=== PATIENT | male | born 1930 | race Asian ===

== ENCOUNTER 2016-12-18 13:02 | Inpatient (IN) | payer MEDICARE, MEDICAID ==
--- NOTE | 2016-12-18 13:46 | ED Physician Chart ---
Chief Complaint/HPI - Patient Information Date Seen:: 12/18/16 Time Seen:: 13:05 Chief Complaint:: Intermittent diarrhea for 3-4 days. History of Present Illness:: Brought in by ambulance for the above reason. Pt is Tagalog speaking. Interpretation is provided by my nurse Jeanie. Pt states that he has had nonbloody loose stool intermittently for the past 3 days. No fever. No known recent antibiotic use, recent travel, or ingestion of contaminated food or liquid. Pt denies abdominal pain or discomfort. No lightheadedness. Allergies:: Allergies Allergy/AdvReac Type Severity Reaction Status Date / Time No Known Allergies Allergy Verified 12/18/16 13:25 Vitals:: Vital Signs - 8 hr 12/18/16 13:25 Temp 97.5 F HR 91 RR 16 BP 147/60 O2 Sat % 97 Historian:: Patient, Medical Records (from transferring facility) Family MD/PCP:: Dr. Espinal. LMP:: N/A Review:: Nurse's Note Reviewed, Transfer documents Reviewed Review of Systems - Review of Systems General/Constitutional: No fever, No chills, No weight loss, No weakness, No diaphoresis, No edema, No loss of appetite, Other Skin: No skin lesions, No rash, No bruising Head: No headache, No light-headedness ENT: No earache, No nasal drainage, No sore throat, No tinnitus Neck: No neck pain, No swelling, No thyromegaly, No stiffness, No mass noted Cardio Vascular: No chest pain, No palpitations, No PND, No orthopnea, No edema Pulmonary: No SOB, No cough, No sputum, No wheezing GI: No vomiting, Diarrhea, No pain, No melena, No hematochezia, No hematemesis G/U: No dysuria, No frequency, No hematuria Musculoskeletal: No bone or joint pain, No back pain, No muscle pain Psychiatric: No prior psych history Hematopoietic: No bruising, No lymphadenopathy Allergic/Immuno: No urticaria, No angioedema Neurological: No syncope, No focal symptoms, No weakness, No paresthesia, No headache, No seizure, No dizziness, No confusion, No vertigo Past Medical History - Past Medical History Past Medical History: HTN, DM, PUD/GERD, Other (Chronic renal insufficiency) Family History: None Social History: Non Smoker, No Alcohol, No Drug Use, , Care Facility, Other (retired.) Surgical History: None Psychiatricy History: None Medication: Reviewed Family Medical History - Family Member Mother History Unknown: Yes Physical Exam - Physical Examination General/Constitutional: Awake, Well-developed, well-nourished, Alert, No distress, Non-toxic appearing Other Gen/Cons comments:: Breathes comfortably, speaks clearly, and interacts appropriately except pt is hard of hearing and is not fully cooperative. Head: Atraumatic Eyes: Lids, conjuctiva normal, PERRL, EOMI Skin: No rash, No ecchymosis, No lymphadenopathy ENMT: External ears, nose nl, Nasal exam nl, Oropharynx nl, Tonsils nl Other ENMT comments:: Mucous membrane is slightly dry. Neck: Nontender, Full ROM w/o pain, No JVD, No nuchal rigidity, No bruit, No mass, No stridor Respiratory: Nl effort/Exclusion, Clear to Auscultation, No Wheeze/Rhonchi/Rales Cardio Vascular: RRR, No murmur, gallop, rubs, NL S1 S2 GI: No tenderness/rebounding/guarding, No organomegaly, No hernia, Normal BS's, Nondistended, No mass/bruits, No McBurney tenderness Other GI comments:: Abdomen is soft. Extremities: No tenderness or effusion, Full ROM, normal strength in all extremities, No edema Neuro/Psych: Alert/oriented (oriented x 3), Mood normal, No focal deficits ( except pt is hard of hearing.) Labs/Radiology/EKG Results - Lab Results Results: Laboratory Tests 12/18/16 12/18/16 14:07 14:07 WBC 11.5 H RBC 3.95 Hgb 12.6 Hct 36.2 L MCV 91.7 MCH 32.0 H MCHC Differential 34.9 RDW 13.0 Plt Count 200 MPV 7.1 Neutrophils % 84.8 H Lymphocytes % 7.2 L Monocytes % 6.7 Eosinophils % 0.5 Basophils % 0.8 Sodium 133 L Potassium 4.0 Chloride 105 Carbon Dioxide 22.0 Anion Gap 10.0 BUN 32 H Creatinine 1.9 H Est GFR ( Amer) TNP Est GFR (Non-Af Amer) TNP BUN/Creatinine Ratio 16.8 Glucose 135 H Calcium 9.6 Total Bilirubin 0.8 AST 17 ALT 16 Alkaline Phosphatase 46 Total Protein 7.6 Albumin 4.1 L Globulin 3.5 Albumin/Globulin Ratio 1.2 Fecal Hemoccult test, fecal WBC and cultures are pending. ED Septic Shock - . Is Septic Shock (SBP<90, OR Lactate>4 mmol\L) present?: No - <6hrs of presentation: Vital Signs: Vital Signs - 8 hr 12/18/16 13:25 Temp 97.5 F HR 91 RR 16 BP 147/60 O2 Sat % 97 Reassessment (Disposition) - Reassessment Reassessment:: 1505 Pt remains stable without recurrent diarrhea since he arrived at the ER. Lab results just became available. Case was discussed with Dr. Espinal with pertinent H & P and available lab findings reviewed. Pt is to be admitted to [facility] under his care. Lab findings and management plan have been explained to pt through interpretation by my nurse Jeanie. Reassessment Condition:: Improved - Diagnosis Diagnosis:: Diarrhea by hx, stable. No recurrent diarrhea after pt arrived at this ER. Dehydration with mild hyponatremia. Stable. Diabetes mellitus, stable. h/o Chronic renal insufficiency, stable. - Patient Disposition Admitted to:: Med/Surg Admitting Medical Physician:: Philip Espinal Time:: 15:10 Condition at Disposition:: Stable, Improved
[2016-12-18 14:18] LABS: % MONOCYTES 6.7 % (2.0-10.0); MEAN PLATELET VOLUME 7.1 fl
[2016-12-18 14:21] LABS: % BASOPHILS 0.8 % (0.0-2.0); % EOSINOPHILS 0.5 % (0.0-5.0); % LYMPHOCYTES 7.2 % (20.0-50.0); % NEUTROPHILS 84.8 % (40.0-80.0); HEMATOCRIT 36.2 % (39.0-49.0); HEMOGLOBIN 12.6 gm/dL (12.6-17.4); MEAN CELL VOLUME 91.7 fl (80-99); MEAN CORPUSCULAR HGB CONC 34.9 pg (28.0-36.0); NEUTROPHILE ABSOLUTE 9.7 Th/cmm (1.8-8.0); PLATELET COUNT 200 Th/cmm (150-400); RED BLOOD COUNT 3.95 Mil/cmm (3.80-5.80); WHITE BLOOD COUNT 11.5 Th/cmm (4.8-10.8)
[2016-12-18 14:35] LABS: ALB/GLOB RATIO 1.2 (1.0-1.8); ALKALINE PHOSPHATASE 46 U/L (34-104); BILIRUBIN,TOTAL 0.8 mg/dL (0.3-1.0); BUN - UREA NITROGEN 32 mg/dL (7-25); BUN/CREATININE RATIO 16.8; CALCIUM SERUM 9.6 mg/dL (8.6-10.3); CHLORIDE 105 mEq/L (98-107); CREATININE - SERUM 1.9 mg/dL (0.7-1.3); GLUCOSE 135 mg/dL (70-105); SGOT 17 U/L (13-39); SGPT/ALT 16 U/L (7-52); SODIUM SERUM 133 mEq/L (136-145)
[2016-12-18] MEDS ORDERED: Sodium Chloride 0.9% 1,000 ML IV ONE (15:01)
[2016-12-18] MEDS ORDERED: Diphenoxylate/Atropine 2.5mg Tab PO PRN (16:16)
[2016-12-18] MEDS: Sodium Chloride 0.9% 1,000 ML IV SCH (16:44)
--- NOTE | 2016-12-18 19:57 | Admit Criteria Form ---
Admit Criteria Forms - Admit Criteria Diagnosis: DEHYDRATION Clinical Indications for Admission to Inpatient Care (Place 'X' for any and all applicable criteria): Admission is indicated for ANY ONE of the following (1)(2)(3)(4)(5): [X]I. Inpatient admission required rather than observation care (see Dehydration: Observation Care guideline as appropriate) because of ANY ONE of the following: [ ]a) Vomiting that is severe or persistent [ ]b) Severe electrolyte abnormalities requiring inpatient care [ ]c) Hemodynamic instability [ ]d) IV fluid to replace significant ongoing losses (greater than 3 L/m2 per day (10) (11) [ ]e) Parenteral nutrition regimen that must be implemented on inpatient basis [X]f) Other condition,treatment or monitoring requiring inpatient admission [ ]II. Serious cause for dehydration requiring acute hospitalization (eg, bowel obstruction, increased intracranial pressure, infectious cause) Extended stay beyond goal length of stay may be needed for(1)(3 )(4)(17): [ ]a) Chronic severe dehydration [ ]b) Persistent vital sign changes, severe electrolyte imbalance, or diagnosed cause of dehydration that requires continued hospitalization (eg, bowel obstruction, increased intracranial pressure) [ ]c) Older patients (65 years or older) [ ]d) Severe comorbid illness (eg, renal failure, heart failure, poorly controlled diabetes) The original [employer] content created by [employer] has been revised. The portions of the content which have been revised are identified through the use of italic text or in bold, and [facility] has neither reviewed nor approved the modified material. All other unmodified content is copyright [facility]. Please see references footnoted in the original [facility] edition 2016 Admit Criteria Met?: Yes
[2016-12-19] MEDS: Sodium Chloride 0.9% 1,000 ML IV SCH (01:46)
[2016-12-19] MEDS: Pantoprazole 40 mg EC Tab PO SCH (08:24)
--- NOTE | 2016-12-19 09:19 | General Progress Note ---
Subjective - Review of Systems Service Date: 12/19/16 Subjective: I have diarrhea Objective - Results Result Diagrams: 12/18/16 14:07 12/18/16 14:07 Recent Labs: Laboratory Last Values WBC 11.5 Th/cmm (4.8-10.8) H 12/18/16 14:07 RBC 3.95 Mil/cmm (3.80-5.80) 12/18/16 14:07 Hgb 12.6 gm/dL (12.6-17.4) 12/18/16 14:07 Hct 36.2 % (39.0-49.0) L 12/18/16 14:07 MCV 91.7 fl (80-99) 12/18/16 14:07 MCH 32.0 pg (27.0-31.0) H 12/18/16 14:07 MCHC Differential 34.9 pg (28.0-36.0) 12/18/16 14:07 RDW 13.0 % (11.5-20.0) 12/18/16 14:07 Plt Count 200 Th/cmm (150-400) 12/18/16 14:07 MPV 7.1 fl 12/18/16 14:07 Neutrophils % 84.8 % (40.0-80.0) H 12/18/16 14:07 Lymphocytes % 7.2 % (20.0-50.0) L 12/18/16 14:07 Monocytes % 6.7 % (2.0-10.0) 12/18/16 14:07 Eosinophils % 0.5 % (0.0-5.0) 12/18/16 14:07 Basophils % 0.8 % (0.0-2.0) 12/18/16 14:07 Sodium 133 mEq/L (136-145) L 12/18/16 14:07 Potassium 4.0 mEq/L (3.5-5.1) 12/18/16 14:07 Chloride 105 mEq/L (98-107) 12/18/16 14:07 Carbon Dioxide 22.0 mEq/L (21.0-31.0) 12/18/16 14:07 Anion Gap 10.0 (7.0-16.0) 12/18/16 14:07 BUN 32 mg/dL (7-25) H 12/18/16 14:07 Creatinine 1.9 mg/dL (0.7-1.3) H 12/18/16 14:07 Est GFR ( Amer) TNP 12/18/16 14:07 Est GFR (Non-Af Amer) TNP 12/18/16 14:07 BUN/Creatinine Ratio 16.8 12/18/16 14:07 Glucose 135 mg/dL (70-105) H 12/18/16 14:07 Calcium 9.6 mg/dL (8.6-10.3) 12/18/16 14:07 Total Bilirubin 0.8 mg/dL (0.3-1.0) 12/18/16 14:07 AST 17 U/L (13-39) 12/18/16 14:07 ALT 16 U/L (7-52) 12/18/16 14:07 Alkaline Phosphatase 46 U/L (34-104) 12/18/16 14:07 Total Protein 7.6 gm/dL (6.0-8.3) 12/18/16 14:07 Albumin 4.1 gm/dL (4.2-5.5) L 12/18/16 14:07 Globulin 3.5 gm/dL 12/18/16 14:07 Albumin/Globulin Ratio 1.2 (1.0-1.8) 12/18/16 14:07 - Physical Exam Vitals and I&O: Vital Signs Temp 97.6 F 12/19/16 07:34 Pulse 75 12/19/16 07:34 Resp 18 12/19/16 07:34 BP 111/54 12/19/16 07:34 Pulse Ox 94 12/19/16 07:34 Intake & Output 12/18/16 12/19/16 12/19/16 18:59 06:59 18:59 Intake Total 250 903.333 240 Output Total 150 Balance 100 903.333 240 Intake: Intake, IV Amount 903.333 Sodium Chloride 0.9% 1, 903.333 000 ml @ 100 mls/hr IV . Q10H YADIRA Rx#:[id number] Oral 250 240 Output: Urine 150 Other: # Bowel Movements 0 1 Active Medications: Current Medications Acetaminophen (Tylenol) 650 mg PO Q6H PRN PRN Reason: Pain or Fever >101 Stop: 02/16/17 16:18 Amlodipine Besylate (Norvasc) 5 mg PO DAILY [facility] Stop: 02/17/17 08:59 Last Admin: 12/19/16 08:40 Dose: Not Given Cyclobenzaprine HCl (Flexeril) 10 mg PO DAILY [facility] Stop: 02/17/17 08:59 Last Admin: 12/19/16 08:24 Dose: 10 mg Diphenoxylate HCl/Atropine (Lomotil) 1 tab PO PRN PRN PRN Reason: Diarrhea Stop: 02/16/17 16:15 Sodium Chloride (Nacl 0.9%) 1,000 mls @ 100 mls/hr IV .Q10H [facility] Stop: 02/16/17 15:49 Last Admin: 12/19/16 01:46 Dose: 100 mls/hr Losartan Potassium (Cozaar) 50 mg PO DAILY [facility] Stop: 02/17/17 08:59 Last Admin: 12/19/16 08:40 Dose: Not Given Megestrol Acetate (Megace) 40 mg PO BID YADIRA PRN Reason: Protocol Stop: 02/16/17 16:59 Last Admin: 12/19/16 08:24 Dose: 40 mg Ondansetron HCl (Zofran) 4 mg IV Q6H PRN PRN Reason: Nausea / Vomiting Stop: 02/16/17 16:18 Pantoprazole Sodium (Protonix) 40 mg PO DAILY [facility] Stop: 02/17/17 08:59 Last Admin: 12/19/16 08:24 Dose: 40 mg General: Alert, Cooperative, No acute distress HEENT: Atraumatic Neck: Supple Cardiovascular: Regular rate Lungs: Clear to auscultation Abdomen: Bowel sounds, Soft, Other (Non tender) Extremities: Other (No edema) Neurological: Other (Non ambulatyory) Skin: Other (Warm and dry) Psych/Mental Status: Other (Confused) Assessment/Plan - Problem List Patient Problems: All Active Problems DIARRHEA (Acute) - Assessment Assessment: patient is awake, calm, in no acute distress. No diarrhea since yesterday. Dx: Diarrhea, Hyponatremia, Dehydration, DM, CKD, HTN, - Plan Plan: Labs are requested. Consult with Nephro ordered. Patient in IV ns. Will continue to monitor.
--- NOTE | 2016-12-19 11:14 | History & Physical ---
CHIEF COMPLAINT: Diarrhea. HISTORY OF PRESENT ILLNESS: This is a case of an 86-year-old male who I follow in the long term. I received a call from long term stating the patient has been having diarrhea, treatment was provided, but despite the treatment, the patient continued with diarrhea. The order was given to transfer patient to ER for evaluation and treatment. During the evaluation in ER, it was found that the patient had dehydration and WBC 11, reason why patient was admitted to continue treatment. PAST MEDICAL HISTORY: The patient has past medical history of chronic kidney disease, diabetes mellitus, hypertension, peptic ulcer disease, and the patient is a wheelchair bound. SOCIAL HISTORY: The patient is a permanent resident of a long term. MEDICATIONS: Reviewed. FAMILY HISTORY: Unremarkable. REVIEW OF SYSTEMS: LUNGS: The patient denies shortness of breath. CHEST: The patient denies chest pain. ABDOMEN: The patient referred diarrhea. EXTREMITIES: The patient is a wheelchair bound. PHYSICAL EXAMINATION: GENERAL: Does reveal a fairly nourished and developed male, awake, alert with some confusion in no acute distress. HEENT: Head is normocephalic and atraumatic. Eyes: Pupils reactive to light. Nose: No evidence of nasal obstruction. Ears: No evidence of any discharge. Mouth: Fairly ____. VITAL SIGNS: Bilateral air entry. HEART: Regular rhythm. ABDOMEN: Soft, nontender, bowel sound is present, not increased bowel sounds. EXTREMITIES: Limited movement of lower extremities, no edema. NEUROLOGICAL: The patient is awake, alert, confused. Neurological examination was not completed secondary to the patient's mental condition. IMPRESSION: 1. Diarrhea. 2. Dehydration. 3. Hyponatremia. 4. Chronic kidney disease. 5. Diabetes mellitus. 6. Hypertension. JOB# [id number]
[2016-12-19 11:23] LABS: % BASOPHILS 0.4 % (0.0-2.0); % LYMPHOCYTES 16.1 % (20.0-50.0); % NEUTROPHILS 71.5 % (40.0-80.0); HEMATOCRIT 33.4 % (39.0-49.0); HEMOGLOBIN 11.6 gm/dL (12.6-17.4); MEAN CELL VOLUME 93.1 fl (80-99); MEAN CORPUSCULAR HEMOGLOBIN 32.3 pg (27.0-31.0); MEAN CORPUSCULAR HGB CONC 34.7 pg (28.0-36.0); MEAN PLATELET VOLUME 7.1 fl; NEUTROPHILE ABSOLUTE 5.1 Th/cmm (1.8-8.0); PLATELET COUNT 181 Th/cmm (150-400); RED BLOOD COUNT 3.58 Mil/cmm (3.80-5.80); RED CELL DISTRIBUTION WIDTH 13.4 % (11.5-20.0)
[2016-12-19 11:32] LABS: ALKALINE PHOSPHATASE 41 U/L (34-104); ANION GAP 8.8 (7.0-16.0); BILIRUBIN,TOTAL 0.9 mg/dL (0.3-1.0); BUN - UREA NITROGEN 24 mg/dL (7-25); CALCIUM SERUM 9.1 mg/dL (8.6-10.3); CARBON DIOXIDE 20.9 mEq/L (21.0-31.0); CHLORIDE 108 mEq/L (98-107); CREATININE - SERUM 1.6 mg/dL (0.7-1.3); GLUCOSE 131 mg/dL (70-105); POTASSIUM SERUM 3.7 mEq/L (3.5-5.1); SGOT 14 U/L (13-39); SGPT/ALT 12 U/L (7-52); SODIUM SERUM 134 mEq/L (136-145)
[2016-12-19 16:43] LABS: URINE BILIRUBIN NEGATIVE (NEGATIVE); URINE BLOOD TRACE (NEGATIVE); URINE COLOR YELLOW; URINE GLUCOSE (UA) NEGATIVE (NEGATIVE); URINE KETONE NEGATIVE (NEGATIVE)
[2016-12-19 16:44] LABS: URINE BACTERIA FEW /hpf (NONE SEEN); URINE EPITHELIAL CELLS FEW /lpf (FEW); URINE PROTEIN NEGATIVE (NEGATIVE); URINE RBC 0-2 /hpf (0-5); URINE UROBILINOGEN 0.2 E.U./dL (0.2 - 1.0); URINE WBC 0-2 /hpf (0-5)
--- NOTE | 2016-12-19 16:46 | Diagnostic Imaging Report ---
Renal ultrasound HISTORY: Abnormal renal function test The right kidney is poorly delineated. Margins are difficult to define. If necessary, CT scan would provide for further anatomic evaluation and assessment. The left kidney is decreased in size (8.9 x 5.3 x 4.8 cm). No focal lesions or hydronephrosis. The prostate gland measures 3.6 x 2.4 x 3.5 cm. Encroachment on the floor of the urinary bladder. No definite focal abnormalities seen within the urinary bladder. The patient was unable to void for assessment of post void residual. IMPRESSION: 1. Essentially nondiagnostic exam of the right kidney that could not be clearly delineated. If necessary, a CT scan would provide additional assessment. 2. Diminished size of the left kidney without hydronephrosis. 3. Mild to moderate prostate enlargement with encroachment on the floor of the urinary bladder. The patient was unable to void for assessment of post void residual volume.
--- NOTE | 2016-12-19 22:35 | Consultation ---
ATTENDING PHYSICIAN: Dr. Philip Espinal. NOVELTY WORKER: Dr. Antonio Mayo. REASON FOR CONSULTATION: Worsening kidney function, electrolyte imbalance and fluid management. HISTORY OF PRESENT ILLNESS: This is an 86-year-old male with past medical history of chronic kidney disease who came in because of watery diarrhea. Three days prior to admission, he developed altered diarrhea. He was initiated on Lomotil. A few hours prior to admission, he continued to have watery diarrhea. He was brought to the Emergency Room. His white count was 11 with a blood pressure of 109/52. He has a history of chronic kidney disease. His BUN/creatinine on admission was 32/1.9 and today came down to 24/1.6 after hydration. He had no history of nausea and vomiting. PAST MEDICAL HISTORY: 1. Chronic kidney disease. 2. Essential hypertension. 3. Type 2 diabetes mellitus. 4. Syncopal episode. CURRENT MEDICATIONS: Acetaminophen, Flexeril, Lomotil, Cozaar, Megace, ondansetron, pantoprazole and Norvasc. ALLERGIES: No known drug allergies. SOCIAL AND FAMILY HISTORY: I was not able to obtain directly from the patient because of language barrier. REVIEW OF SYSTEMS: GENERAL: Again, I was not able to decipher directly from the patient. As per transfer notes, the patient had a very poor appetite. No mention of fever. HEENT: No mention of headaches nor dizziness. CARDIORESPIRATORY: No chest pain, palpitations, diaphoresis or cough. GASTROINTESTINAL: He had watery diarrhea, but there was no mucus nor blood. There was no associated abdominal pain nor cramping. No melena or hematochezia. MUSCULOSKELETAL: Multiple joint arthralgias. GENITOURINARY: History of chronic kidney disease. However, no dysuria nor hematuria. HEMATOLOGIC: He has mild anemia. NEUROPSYCHE: No syncopal episode nor seizure activity. Questionable neuropathy. ENDOCRINE: History of diabetes, but no thyroid abnormalities, nor dyslipidemia. PHYSICAL EXAMINATION: GENERAL: The patient is awake, verbalizing, not in any form of distress. VITAL SIGNS: His blood pressure is 111/56, pulse 60 and temperature 98.4 degrees. SKIN: Poor turgor, warm. No rash and no jaundice appreciated. HEENT: Head: Normocephalic and atraumatic. Eyes: Extraocular muscles intact. Pupils equal, round and reactive to light and accommodates, anicteric sclerae, pink conjunctivae. Nose: Midline nasal septum. Mouth: Moist mucosa with poor dentition. NECK: Supple. No adenopathy, no thyromegaly and no bruits. Trachea palpated in the midline. CHEST AND CVS: S1 and S2. No rub, murmur nor gallop appreciated. Point of maximal impulse is in the fifth intercostal space, left midclavicular line. No abdominal or femoral bruits appreciated. LUNGS: Equal expansion. No use of accessory muscles. No supraclavicular retractions, decreased breath sounds, clear to auscultation without any wheeze. ABDOMEN: Flat, soft. Positive for bowel sounds. No bruits either diastolic or systolic. RECTAL: Lax sphincter tone. GENITOURINARY: Normal appearing male genitalia. MUSCULOSKELETAL: No effusions present in his joints, but unable to assess his range of motion. EXTREMITIES: No evidence of any edema, cyanosis nor clubbing with palpable femoral, but unable to fully appreciate popliteal and dorsalis pedis pulses. NEUROLOGIC: As mentioned, the patient is awake, but unable to follow my neuro commands due to language barrier and so I was not able to pursue further my neuro exam. He has voluntary movements of all extremities. LABORATORY DATA: Revealed sodium of 134, potassium 3.7, chloride 100, bicarb 20, BUN 24, creatinine 1.6 and glucose 131. White count 7, hemoglobin 11.6, hematocrit 33.4, polys 71.1% and platelets 181. Albumin 3.6. TSH is 0.96. Stool for OB negative. White count is also negative. IMPRESSION: 1. Acute kidney injury on chronic kidney disease, MDRD GFR 43.8 mL per minute, stage 3. 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 He may also have some underlying hypertensive nephrosclerosis. Acute kidney injury is initially prerenal in this particular case. The patient had watery diarrhea for the last 3 days. He was not able to replenish all his sensible and insensible fluid losses. This would give rise to dehydration and a decrease in effective circulating volume. Thus, his prerenal azotemia progressed to acute tubular injury. 2. Watery diarrhea, likely acute (viral/bacterial) gastroenteritis, other possibilities could be from medications, malabsorption in terms of hyperosmolarity, diabetic neuropathy, which can cause an increase in gastric emptying. 3. Essential hypertension with chronic kidney disease. 4. Type 2 diabetes mellitus with chronic kidney disease. 5. Moderate malnutrition. PLAN: 1. IV fluids. 2. Stool for Clostridium difficile. 3. Monitor electrolytes. 4. Urinalysis. 5. Urine sodium and urine eosinophils as well as creatinine. 6. Renal ultrasound. Thank you, Dr. Espinal for this consult and we will follow the patient closely with you. JOB# [id number]
[2016-12-20] MEDS: Sodium Chloride 0.9% 1,000 ML IV SCH (03:25)
[2016-12-20] MEDS: Pantoprazole 40 mg EC Tab PO SCH (09:19)
[2016-12-20 09:50] LABS: % BASOPHILS 0.5 % (0.0-2.0); % EOSINOPHILS 2.8 % (0.0-5.0); % LYMPHOCYTES 25.6 % (20.0-50.0); % MONOCYTES 10.8 % (2.0-10.0); % NEUTROPHILS 60.3 % (40.0-80.0); HEMATOCRIT 33.6 % (39.0-49.0); HEMOGLOBIN 11.7 gm/dL (12.6-17.4); MEAN CELL VOLUME 90.8 fl (80-99); MEAN CORPUSCULAR HEMOGLOBIN 31.7 pg (27.0-31.0); MEAN CORPUSCULAR HGB CONC 34.9 pg (28.0-36.0); MEAN PLATELET VOLUME 7.4 fl; NEUTROPHILE ABSOLUTE 3.6 Th/cmm (1.8-8.0); PLATELET COUNT 156 Th/cmm (150-400); WHITE BLOOD COUNT 5.9 Th/cmm (4.8-10.8)
[2016-12-20 11:15] LABS: ALB/GLOB RATIO 1.1 (1.0-1.8); ALKALINE PHOSPHATASE 45 U/L (34-104); ANION GAP 13.7 (7.0-16.0); BILIRUBIN,TOTAL 1.1 mg/dL (0.3-1.0); BUN - UREA NITROGEN 16 mg/dL (7-25); BUN/CREATININE RATIO 12.3; CALCIUM SERUM 8.3 mg/dL (8.6-10.3); CARBON DIOXIDE 15.4 mEq/L (21.0-31.0); CHLORIDE 110 mEq/L (98-107); CREATININE - SERUM 1.3 mg/dL (0.7-1.3); GLUCOSE 94 mg/dL (70-105); MAGNESIUM 2.1 mg/dL (1.9-2.7); PHOSPHOROUS 2.7 mg/dL (2.5-5.0); POTASSIUM SERUM 4.1 mEq/L (3.5-5.1); SGOT 22 U/L (13-39); SGPT/ALT 12 U/L (7-52); SODIUM SERUM 135 mEq/L (136-145); URIC ACID 6.3 mg/dL (4.4-7.6)
[2016-12-22 12:17] LABS: MICROALBUMIN RANDOM RUINE 9.2 ug/mL (Not Estab.)
--- NOTE | 2016-12-26 21:01 | Discharge Summary ---
CHIEF COMPLAINT: Diarrhea. HISTORY OF PRESENT ILLNESS: This is the case of an 86-year-old male who I follow in the detention. I received a call stating that the patient is having diarrhea for 1 week, reason why he was sent to Emergency Room for evaluation and treatment. During ER evaluation, the diagnoses of dehydration and leukocytosis was done, reason why the patient was hospitalized. HOSPITAL COURSE AND TREATMENT: When this patient was admitted in the medical surgical floor, he was started on IV normal saline. Loperamide was given and he was continued with all the medications that he received in the detention. Regular diet was given. After ____ days in the hospital and when normal bowel moment, it was considered the patient received the maximum benefit of hospitalization and he could be sent back to the detention. DIAGNOSES: 1. Diarrhea. 2. Dehydration. 3. Hyponatremia. 4. Chronic kidney disease. 5. Diabetes mellitus. 6. Hypertension. JOB# [id number]
== END 2016-12-20 14:26 | DRG 392 ==
LOC: ER 13:02 → MSI 15:00
PROVIDERS: ADMIT General Practice; ATTEND General Practice
DX: K52.9 Noninfective gastroenteritis and colitis, unspecified (principal); N17.9 Acute kidney failure, unspecified; E44.0 Moderate protein-calorie malnutrition; E11.21 Type 2 diabetes mellitus with diabetic nephropathy; E87.1 Hypo-osmolality and hyponatremia; E11.42 Type 2 diabetes mellitus with diabetic polyneuropathy; E86.0 Dehydration; N18.3 Chronic kidney disease, stage 3 (moderate); K27.9 Peptic ulcer, site unspecified, unspecified as acute or chronic, without hemorrhage or perforation; I12.9 Hypertensive chronic kidney disease with stage 1 through stage 4 chronic kidney disease, or unspecified chronic kidney disease; Z68.25 Body mass index [BMI] 25.0-25.9, adult; Z99.3 Dependence on wheelchair
CPT/HCPCS: 36415-UA; 76770-TC; 80053-TC; 81001-TC; 81015-TC; 82043-90; 82270-TC; 82570-TC; 83735-TC; 83930-90; 84100-TC; 84300-TC; 84443-TC; 84550-TC; 85025-TC; 87046-90; 87230-TC; 89055-TC; J7030; Z7610